=== PATIENT | female | born 1945 | race Caucasian/White ===

== ENCOUNTER 2016-10-08 09:18 | Day surgery (SDC) | payer OTHER ==
[2016-10-07 15:08] VITALS: BMI 43.7
[2016-10-08] MEDS ORDERED: LIDOCAINE HCL/PF 2% SDV 5ML VIAL ONE (10:14)
[2016-10-08] MEDS ORDERED: PROPOFOL 60 ML ONE (10:14)
[2016-10-08 10:49] VITALS: TEMP 97.9
[2016-10-08 11:16] VITALS: PULSE 63
[2016-10-08 11:37] VITALS: BP 143/65
--- NOTE | 2016-10-09 14:35 | PATH ---
Surgical Pathology Report Patient Name: SHARON RIVERA [facility]. Rec. #: [id number] /Age/Gender: 1945 (Age: 71) / F Account: [id number] Location: U-ENDOSCOPY Taken: 10/08/2016 Received: 10/08/2016 Reported: 10/09/2016 Physicians: Giovanna Casanova M.D. Specimen(s) Received POLYP CECUM Clinical History History of polyps, screening Cecal polyp, diverticulosis Final Diagnosis COLON, CECUM, POLYP, POLYPECTOMY: CONSISTENT WITH INFLAMMATORY/POSTINFLAMMATORY-TYPE POLYP. Electronically Signed Michael Arshad M.D. Gross Description Received in formalin, labeled "polyp cecum" are 2 andrews, irregular portions of soft tissue measuring 0.8 and 0.9 cm in greatest dimension. The specimens are submitted in toto in one cassette. /10/08/201610/08/2016
== END 2016-10-08 11:55 | disposition home or self-care (01) ==
LOC: JASU-ENDO 09:18
PROVIDERS: ATTEND Internal Medicine Gastroenterology
PROC: 0DBH8ZX Excision of Cecum, Via Natural or Artificial Opening Endoscopic, Diagnostic (ICD-10-PCS; principal; 2016-10-08 10:00)
DX: Z12.11 Encounter for screening for malignant neoplasm of colon (principal); D12.0 Benign neoplasm of cecum; K57.30 Diverticulosis of large intestine without perforation or abscess without bleeding; K64.8 Other hemorrhoids; I10 Essential (primary) hypertension; E78.5 Hyperlipidemia, unspecified; E89.0 Postprocedural hypothyroidism
CPT/HCPCS: 88305-TC

== ENCOUNTER 2017-08-05 10:04 | Day surgery (SDC) | payer OTHER ==
[2017-08-04 10:16] VITALS: BMI 43.0
[~2017-08-05 10:04] MED LIST: ACETAMINOPHEN 325 MG TABLET (FP) PO PRN; CIPROFLOXACIN HCL 0.3% OPHTH 2.5ML BOTTLE OP SCH; CYCLOPENTOLATE HCL 1% OPHTH SOLN 2 ML BOTTLE OP SCH; PHENYLEPHRINE 2.5% OPHTH SOLN 15 ML BOTTLE OP SCH; TROPICAMIDE 1% OPHTH SOLN 15 ML BOTTLE OP SCH
[2017-08-05] MEDS ORDERED: FLURBIPROFEN 0.03% OPHTH SOLN 2.5 ML BOTTLE ONE (10:29)
[2017-08-05] MEDS: CYCLOPENTOLATE HCL 1% OPHTH SOLN 2 ML BOTTLE ONE ×3 (10:50→11:22)
[2017-08-05] MEDS: CIPROFLOXACIN 0.3% EYE DROPS 5 ML BOTTLE ONE ×3 (10:50→11:22)
[2017-08-05] MEDS: TROPICAMIDE 1% OPHTH SOLN 15 ML BOTTLE ONE ×3 (10:50→11:23)
[2017-08-05] MEDS: PHENYLEPHRINE 2.5% OPHTH SOLN 15 ML BOTTLE ONE ×3 (10:50→11:23)
[2017-08-05] MEDS: FLURBIPROFEN 0.03% OPHTH SOLN 2.5 ML BOTTLE OP SCH ×2 (10:50→11:23)
[2017-08-05 10:55] VITALS: TEMP 97.3
[2017-08-05] MEDS ORDERED: MIDAZOLAM HCL 2 MG/2 ML SINGLE DOSE VIAL ONE (12:07)
[2017-08-05] MEDS ORDERED: TETRACAINE 0.5% OPHTH SOLN 2 ML BOTTLE OD ONE (12:23)
[2017-08-05] MEDS ORDERED: POVIDONE-IODINE 5% OPHTHALMIC PREP 30 ML SOLUTION OD ONE (12:25)
[2017-08-05] MEDS ORDERED: HYALURONATE SODIUM 14 MG/ML DISP.SYRIN IO ONE (12:35)
[2017-08-05] MEDS ORDERED: TRYPAN BLUE 0.5 ML DISP.SYRIN IO ONE (12:35)
[2017-08-05] MEDS ORDERED: CHONDROITIN SU A/HYALUR SOD 1 KIT IO ONE (12:35)
[2017-08-05] MEDS ORDERED: LIDOCAINE HCL 1% PRESERVATIVE FREE - 30ML VIAL IO ONE (12:35)
[2017-08-05] MEDS ORDERED: BSS (NA/CA/MG/K) BALANCED SALT SOLUTION OPHTH SOLN 15 ML BOTTLE OD ONE (12:35)
[2017-08-05] MEDS ORDERED: EPINEPHrine/PF 1 MG/1 ML (1:1,000) AMPULE IO ONE (12:42)
[2017-08-05 14:24] VITALS: BP 137/66; PULSE 66
--- NOTE | 2017-08-05 18:41 | OP ---
DATE OF OPERATION: PREOPERATIVE DIAGNOSIS: Mature white cataract, right eye. ASSOCIATED DIAGNOSIS: Pseudoexfoliation. POSTOPERATIVE DIAGNOSIS: Mature white cataract, right eye. PROCEDURE: Phacoemulsification of right cataract with capsular stain with Trypan blue and posterior chamber intraocular lens implantation. The lens used [id number] , 20.0 Diopter power, Serial No. [id number]. ANESTHESIA: Topical MAC. COMPLICATIONS: None. PROCEDURE: The patient was brought to the operating room and correctly identified along with the operative site as well as the correct intraocular lens bello. She was then prepped and draped in the usual sterile fashion including 5% Betadine solution in the conjunctival sac and an eyelid drape. An eyelid speculum was then placed into the right eye. The eye was inspected, and a white cataract was noted with a significant amount of pseudoexfoliation on the anterior lens capsule and pupillary margin. The pupil measured 6 mm. A paracentesis port was created and intracameral Lidocaine was given. An air bubble was then placed in the anterior chamber, and the anterior capsule was then stained with Trypan blue. The trypan blue was then removed with the rest of the preservative free lidocaine 1%. Viscoelastic was injected to inflate the anterior chamber. A temporal clear corneal wound was created. A continuous circular capsulorrhexis was performed, and the nucleus was then hydro-dissected with BSS and removed with phacoemulsification via the [id number] approach. The cataract was noted to be brown, and a moderate amount of phaco energy was employed to remove the quadrants. The remaining cortical material was irrigated and aspirated from the eye. A small wound burn was noted in the center of the roof of the clear corneal wound. Viscoelastic was injected to inflate the capsular bag. The intraocular lens was injected into the capsular bag. Viscoelastic was then irrigated and aspirated from the eye. The anterior chamber was then reformed with BSS. However, there was a small amount of leakage noted in the temporal clear corneal wound. A single 10-0 nylon suture was placed, and the anterior chamber reformed again with BSS, but once again there was still a small amount of leakage. A second 10-0 nylon suture was placed and no further leakage was noted. The intraocular lens was noted to be well centered and covered by the anterior capsular border. All wounds were once again checked and found to be watertight. Topical Vancomycin was given and the eye patched and shielded. The patient was discharged from the operating room in stable condition. PAUL SOTELO M.D. [id number] MTDD
== END 2017-08-05 14:28 | disposition home or self-care (01) ==
LOC: JASU-SURG 10:04
PROVIDERS: ATTEND Ophthalmology
PROC: 08RJ3JZ Replacement of Right Lens with Synthetic Substitute, Percutaneous Approach (ICD-10-PCS; principal; 2017-08-05 12:00)
DX: H25.091 Other age-related incipient cataract, right eye (principal); H26.8 Other specified cataract

== ENCOUNTER 2018-04-30 05:24 | Day surgery (SDC) | payer OTHER ==
[2018-04-29 14:44] VITALS: BMI 43.9
--- NOTE | 2018-04-30 09:31 | HP ---
History & Physical Update - History History: No Change - Physical Physical: No Change - Assessment Assessment: No Change - Plan Plan: No Change (Patient with papillary carcinoma of the lft breast for left partial mastectomy, sentinel node biopsy.)
[2018-04-30] MEDS ORDERED: SUCCINYLCHOLINE CHLORIDE 200 MG/10 ML VIAL ONE (13:52)
[2018-04-30] MEDS ORDERED: PROPOFOL 20 ML ONE (13:52)
[2018-04-30] MEDS ORDERED: MIDAZOLAM HCL 2 MG/2 ML SINGLE DOSE VIAL ONE (13:52)
[2018-04-30] MEDS ORDERED: ceFAZolin SODIUM 1 GM VIAL ONE (14:41)
[2018-04-30] MEDS ORDERED: ceFAZolin SODIUM 1 GM VIAL IVPB ONE (14:42)
[2018-04-30] MEDS ORDERED: ePHEDrine SULFATE 50 MG/1 ML AMPULE ONE (14:53)
[2018-04-30] MEDS ORDERED: VASOPRESSIN 20 UNITS/ML VIAL IV ONE (15:29)
[2018-04-30] MEDS ORDERED: oxyCODONE HCL 5 MG TABLET PO PRN (15:52)
[2018-04-30] MEDS ORDERED: LACTATED RINGERS SOLUTION 1,000 ML IV SCH (16:00)
[2018-04-30] MEDS ORDERED: BUPIVACAINE HCL/PF 0.5% (5MG/ML) 10 ML VIAL ONE (16:21)
[2018-04-30] MEDS ORDERED: BUPIVACAINE HCL/PF 0.5% (5MG/ML) 10 ML VIAL IJ ONE (16:30)
--- NOTE | 2018-04-30 16:45 | OP ---
Operative Note - Note: Operative Date: 04/30/18 Pre-Operative Diagnosis: Papillary carcinoma of left breast. Operation: Needle localisation of carcinoma of left breast, left partial mastectomy with margins,. [place] node identification, with neoprobe, sentinel lymph node biopsy. Post-Operative Diagnosis: Same as Pre-op Surgeon: Lary Hurtado Anesthesiologist/CORK INSULATOR: Patti Millard Anesthesia: General Specimens Removed: Partial mastectomy left breast , after localisation by radiology. Left axillary sentinel lymph node. Estimated Blood Loss (mls): 20 Operative Report Dictated: Yes
[2018-04-30] MEDS ORDERED: ONDANSETRON 4 MG/2 ML VIAL ONE (17:23)
[2018-04-30 19:05] VITALS: TEMP 98
[2018-04-30] MEDS ORDERED: PROMETHAZINE HCL 25 MG/1 ML VIAL IVPUSH ONE (19:20)
[2018-04-30] MEDS ORDERED: PROMETHAZINE HCL 25 MG/1 ML VIAL IVPB ONE (19:20)
[2018-04-30] MEDS ORDERED: PROMETHAZINE HCL 25 MG/1 ML VIAL ONE (19:20)
[2018-04-30 19:53] VITALS: BP 118/61; PULSE 78
--- NOTE | 2018-05-01 13:01 | OP ---
DATE OF OPERATION: 04/30/2018 PREOPERATIVE DIAGNOSIS: Papillary carcinoma of the left breast. POSTOPERATIVE DIAGNOSIS: Papillary carcinoma of the left breast. OPERATIVE PROCEDURE: Needle localization of papillary carcinoma of the left breast, left partial mastectomy with margins, sentinel node identification in the left axilla, and sentinel lymph node biopsy. SURGEON: Seth Hurtado MD ANESTHESIA: General anesthesia. OPERATIVE DESCRIPTION: This 73-year-old woman with an abnormal left mammogram biopsy of which showed papillary carcinoma was brought in for partial mastectomy of the left breast with sentinel node biopsy after needle localization of the lesion in the left breast and injection of radioactive substance for nuclear mapping of a sentinel lymph node. Consent was obtained. Risks, benefits and complications had been extensively discussed with the patient. The patient had first needle localization in the radiology department as well as radiocontrast injected for sentinel node mapping. Patient was then brought to the operating room. General anesthesia was administered. The left breast and left axilla were painted and draped. Timeout was called. Patient was given antibiotics. The needle in the lesion in the left breast was just above the areola at about the 1 o'clock position. Therefore circumareolar incision was made in the outer aspect on the edge of the left areola. The incision was deepened through skin. Skin flap was then raised in the upper outer quadrant of the left breast. The needle was then grasped and a wide amount of breast was excised around the guidewire and the tip of the wire. The breast tissue that was excised was greater than 5 cm in diameter. The wide margin was obtained around the wire. Specimen was then marked superiorly, medially and laterally with silk sutures as well as Vicryl sutures. The specimen was sent for specimen radiography where the previously placed clip was identified. The specimen was then sent to Pathology. The wound was irrigated. Hemostasis was achieved. Breast tissue was carefully approximated with 2-0 chromic catgut sutures and skin approximated with buried interrupted 4-0 Monocryl sutures and running subcuticular sutures. Estimated blood loss for this procedure was about 15 mL. The patient was then redraped and the axillary dissection was performed. The Neoprobe was used to identify the radioactivity. On the upper medial aspect of the axilla there was active radioactivity going up to 300 to 400 with the surrounding area being in the 30 to 40. A transverse incision was made under the medial wall of the left axilla. The incision was deepened through skin, subcutaneous tissue and the deep fascia. The probe was then inserted to identify the axillary lymph node. Once this was identified the activity was around 700 with a background of about 20. This lymph node was then removed dividing the lymphatics with clips and adjacent lymph nodes were also removed. This was firm and after removing it from the body it also showed activity of over 700, thus suggesting this was the sentinel lymph node. There were no other lymph nodes with increased activity. The specimen was sent to Pathology. It was not in formalin. The wound was irrigated. Hemostasis was achieved. The defect was approximated with interrupted 3-0 Vicryl sutures. Subcutaneous fat and dermis were approximated with interrupted 3-0 Vicryl sutures. Skin was approximated with continuous 4-0 Monocryl sutures in running subcuticular fashion. Pressure dressing was applied. Sponge count and instrument count were correct. Patient was extubated and returned to the recovery room in satisfactory and stable condition. Shania BOATENG/[id number]
--- NOTE | 2018-05-05 11:13 | PATH ---
Surgical Pathology Report Patient Name: SHARON RIVERA [facility]. Rec. #: [id number] /Age/Gender: 1945 (Age: 73) / F Account: [id number] Location: [facility] SURGICAL Taken: 04/30/2018 Received: 04/30/2018 Reported: 05/06/2018 Physicians: Seth Hurtado M.D. Specimen(s) Received A: LEFT BREAST LUMPECTOMY B: LEFT AXILLARY SENTINEL LYMPH NODE BX Clinical History None given Final Diagnosis AMENDED REPORT A. BREAST, LEFT, LUMPECTOMY: INTRACYSTIC PAPILLARY CARCINOMA WITH EXTENSIVE SCLEROSIS, INTERMEDIATE NUCLEAR GRADE; NO DEFINITIVE INVASION IDENTIFIED. INTRACYSTIC PAPILLARY CARCINOMA SPANS 1.5 CM IN GREATEST MICROSCOPIC DIMENSION. DUCTAL CARCINOMA IN SITU (DCIS), SOLID, PAPILLARY, AND FOCAL CRIBRIFORM TYPES, INTERMEDIATE NUCLEAR GRADE. NO LYMPHOVASCULAR INVASION IDENTIFIED. SURGICAL MARGINS ARE UNINVOLVED BY INTRACYSTIC PAPILLARY CARCINOMA AND DCIS; INTRACYSTIC PAPILLARY CARCINOMA IS 1 MM FROM CLOSEST LATERAL AND INFERIOR MARGINS; DCIS IS 1 MM FROM CLOSEST INFERIOR MARGIN. PRIOR BIOPSY SITE CHANGES PRESENT. PATHOLOGIC STAGE (pTNM): pTis (DCIS) pN0(sn). SEE CASE SUMMARY BELOW. SEE COMMENT. B. AXILLARY SENTINEL LYMPH NODE, LEFT, EXCISION: ONE BENIGN LYMPH NODE (0/1). Comment: Immunohistochemical stains performed and interpreted at [facility] for myoepithelial markers: P63 and smooth muscle myosin heavy chain (SMM-HC) demonstrate the presence of attenuated myoepithelial cells in the intracystic papillary carcinoma. This finding, along with morphologic feature of circumscribed peripheral contour of the lesion supports the diagnosis, and aids in ruling out the presence of invasive carcinoma. Papillary intracystic carcinoma without definitive evidence of invasion is deemed as having a biologic potential of an in situ carcinoma, and hence staged as such. Case seen interdepartmentally. Findings discussed with Dr. Hurtado 05/06/18. Comments DCIS of the Breast: Surgical Pathology Cancer Case Summary (Based on AJCC TNM 8 th edition) Procedure _X_ Excision (less than total mastectomy) Specimen Laterality _X_ Left Size (Extent) of DCIS (and intracystic papillary carcinoma) Estimated size (extent) of DCIS (greatest dimension using gross and microscopic evaluation): at least (millimeters) _15__ mm Number of blocks with DCIS (and intracystic papillary carcinoma): _7__ Number of blocks examined: _12__ Histologic Type _X_ Intracystic papillary carcinoma _X_ Ductal carcinoma in situ Architectural Patterns _X_ Micropapillary _X_ Papillary _X_ Solid Nuclear Grade _X_ Grade II (intermediate) Necrosis _X_ Not identified Margins _X_ Uninvolved by Intracystic papillary carcinoma: Distance from closest margin (millimeters): _1__ mm Specify closest margin: Inferior and lateral margins _X_ Uninvolved by DCIS Distance from closest margin (millimeters): _1__ mm Specify closest margin: Inferior margin. Regional Lymph Nodes Number of Lymph Nodes with Macrometastases (>2 mm): _0___ Number of Lymph Nodes with Micrometastases (>0.2 mm to 2 mm and/or >200 cells): __0__ Number of Lymph Nodes with Isolated Tumor Cells (=0.2 mm and =200 cells): _0___ Number of Lymph Nodes Examined: _1__ Number of [place] Nodes Examined: _1__ Pathologic Stage Classification (pTNM, AJCC 8th Edition) Primary Tumor (pT) _X_ pTis (DCIS): Ductal carcinoma in situ (and intracystic papillary carcinoma) Regional Lymph Nodes (pN) Modifier _X_ (sn): [place] node(s) evaluated. _X_ pN0: No regional lymph node metastasis identified or ITCs only Biomarker Studies Results of ER and UT studies performed on this specimen (block#A1) at [facility] are as follows: ER (clone [id number] mouse monoclonal antibody by [employer]): >90% nuclear staining with strong intensity (Positive). UT (clone16 mouse monoclonal antibody by [employer]): ~60% nuclear staining with moderate to strong intensity (Positive). Positive and negative controls (internal if applicable) show appropriate results. Formalin fixation and cold ischemic times are within current ASCO/CAP recommendations for ER, UT and Her2 testing. Electronically Signed Pinky Alamo M.D. Amendments Amended: 05/06/2018 Previous Signout Date: 05/05/2018 Comment: Change the diagnosis from Invasive Papillary carcinoma, Solid variant to Intracystic Papillary carcinoma, Intermediate nuclear grade. Update margin status and case summary. Findings discussed with Dr. Hurtado on 05/06/2018. Addendum Reported: 05/05/2018 Addendum Diagnosis Results of Her2 (IHC) & Ki-67 studies performed on block "A1 " at [place], [place] ([id number]) are as follows: Her2 IHC (EP3 from [employer], formerly known as [id number], using [employer] Polymer Refine detection kit): 0 (Negative). Ki-67: ~ 25% (Intermediate proliferative index). Positive and negative controls (internal if applicable) show appropriate results. Pinky Alamo M.D. Gross Description A. Received fresh on an AccuGrid, labeled "left breast lumpectomy," is a 6.4 x 5.3 x 2.8 cm. andrews-yellow, irregular, portion of fibroadipose tissue with a needle localization wire present. Specimen designated as follows: single strand suture marking the medial aspect, double strand suture marking the superior aspect and purple suture marking the anterior aspect, per surgeon. There is no skin or nipple present. The specimen is inked as follows: Superior blue; inferior green; anterior and lateral red; medial yellow; deep black. The specimen is serially sectioned from anterior to deep. Sectioning reveals 2 x 1.5 x 1.5 cm andrews, firm, ill-defined mass focally abutting the anterior, medial and inferior margins. There is an additional 1.5 x 1.0 x 0.8 cm focus of firm fibrous tissue abutting the lateral margin. Circular Knife Cutter Machine sections are submitted in 12 cassettes as follows: 1-full face section of mass; 2-mass with medial margin; 3-5-mass with medial and inferior margins; 6-additional inferior margin; 7-anterior margin; 4-23-oopbornb focus of firm fibrous tissue with lateral margin; 11-superior margin; 12-deep margin. Total formalin fixation time: Approximately 26 hours DL/04/30/2018 B. Received in formalin labeled "left axillary sentinel lymph node" is a pink-andrews lymph node measuring 2 x 2 x 1 cm. The specimen is serially sectioned and entirely submitted in 2 cassettes. [facility] [place]/05/03/2018 [facility]04/30/2018
== END 2018-04-30 20:25 | disposition home or self-care (01) ==
LOC: JASU-SURG 05:24
PROVIDERS: ATTEND Specialist
PROC: 0HBU0ZZ Excision of Left Breast, Open Approach (ICD-10-PCS; principal; 2018-04-30 14:30)
PROC: 07B60ZX Excision of Left Axillary Lymphatic, Open Approach, Diagnostic (ICD-10-PCS; 2018-04-30 14:30)
DX: C50.912 Malignant neoplasm of unspecified site of left female breast (principal)
CPT/HCPCS: 19281; 78195-TC; 88307-TC; 88341-TC; 88342-TC; 94760; A9541

== ENCOUNTER 2018-05-01 14:46 | Inpatient (IN) | payer OTHER ==
[2018-05-01 15:34] LABS: BASO % 0.3 % (0-2.0); EOS % 0.2 % (0-4.5); HEMATOCRIT 44.2 % (32.4-45.2); HEMOGLOBIN 14.9 GM/dL (10.7-15.3); LYMPH % 3.2 % (8-40); MCH 32.1 pg (25.7-33.7); MCHC 33.6 g/dl (32.0-36.0); MEAN CELL VOLUME 95.6 fl (80-96); MEAN PLT VOLUME 9.9 fl (7.5-11.1); NEUT % 89.3 % (42.8-82.8); PLATELET COUNT 241 K/MM3 (134-434); RBC 4.63 M/mm3 (3.60-5.2); RDW 12.3 % (11.6-15.6); WHITE BLOOD COUNT 25.6 K/mm3 (4.0-10.0)
--- NOTE | 2018-05-01 15:54 | PDOC ---
History of Present Illness - General Chief Complaint: Syncope/Near Syncope Stated Complaint: SYNCOPE Time Seen by Provider: 05/01/18 15:15 - History of Present Illness Initial Comments: 05/01/18 15:53 73 yo F w/ PMH HTN, hypothyroid, thyroidectomy 2011, murmur?, recent papillary carcinoma of the L breast s/p left partial mastectomy w/ sentinel node biopsy on 04/30/18, p/w syncopal episode. This morning pt was on couch talking on phone eating breakfast and passed out. Pt does endorse seeing some spots beforehand but did not notice any prodromal sxs and denies any cp, sob, lightheadedness, n/v/d, fevers, chills, postictal confusion, head trauma, incontinence, seizure like activity, palpitations, urinary sxs, blood in stools. Pt notes she did take her lasix that morning before passing out,which she takes every other day but did not take her BP meds. She did feel warm after regaining consciousness SH: denies smoke etoh drugs Past History - Past Medical History Allergies/Adverse Reactions: Allergies Allergy/AdvReac Type Severity Reaction Status Date / Time phenobarbital Allergy Intermediate Verified 08/05/17 11:15 ibuprofen AdvReac Severe Verified 08/05/17 11:15 Home Medications: Ambulatory Orders Amlodipine Besylate [Norvasc -] 5 mg PO DAILY 07/29/12 Chlorthalidone [Hygroton -] 25 mg PO ASDIR 07/29/12 Cholecalciferol (Vitamin D3) [Vitamin D3] 50,000 unit PO WEEKLY 10/07/16 Levothyroxine [Synthroid -] 100 mcg PO DAILY 10/07/16 Lisinopril [Prinivil] 20 mg PO DAILY 10/07/16 Metoprolol Succinate [Toprol Xl] 50 mg PO BID 10/07/16 hydrALAZINE HCL [Apresoline -] 25 mg PO BID 10/07/16 Ranitidine HCl [Zantac] 150 mg PO BID 04/29/18 Acetaminophen [Tylenol] 325 mg PO TID 10 Days #30 capsule 04/30/18 Anemia: No Asthma: No Cancer: No Cardiac Disorders: No CVA: No COPD: No CHF: No Dementia: No Diabetes: No GI Disorders: Yes (COLON POLYPS) Disorders: No HTN: Yes Hypercholesterolemia: Yes Liver Disease: No Seizures: No Thyroid Disease: Yes - Surgical History Abdominal Surgery: No Appendectomy: No Cardiac Surgery: No Cholecystectomy: No Lung Surgery: No Neurologic Surgery: No Orthopedic Surgery: No - Suicide/Smoking/Psychosocial Hx Smoking History: Never smoked Have you smoked in the past 12 months: No If you are a former smoker, when did you quit?: 30YRS AGO. Hx Alcohol Use: Yes (SOCIALLY) Drug/Substance Use Hx: No Substance Use Type: None Hx Substance Use Treatment: No Review of Systems - Review of Systems Constitutional: Yes: See HPI HEENTM: Yes: See HPI Respiratory: Yes: See HPI Cardiac (ROS): Yes: See HPI ABD/GI: Yes: See HPI : Yes: See HPI Musculoskeletal: Yes: See HPI Integumentary: Yes: See HPI Neurological: Yes: See HPI Endocrine: Yes: See HPI Hematologic/Lymphatic: Yes: See HPI *Physical Exam - Vital Signs Last Vital Signs Temp Pulse Resp BP Pulse Ox 98.7 F 70 18 143/51 L 99 05/01/18 14:52 05/01/18 14:52 05/01/18 14:52 05/01/18 14:52 05/01/18 14:52 - Physical Exam Comments: 05/01/18 15:52 General: Well-nourished, NAD, obese HEENT: NCAT, MMM Neck: Supple, no lymphadenopathy Respiratory: CTAB cardio: diminished, RRR S1 S2 no m/r/g Abdomen: +BS , soft, NTND Extremities: radial 2+ b/l. Warm, dry, no cyanosis, clubbing or calf tenderness. 1+ pitting edema Skin: intact. no rashes Neuro: Alert and oriented x3, strength sensation grossly intact. FTN nl. CN I- XII grossly intact Psych: Normal mood and affect ED Treatment Course - LABORATORY CBC & Chemistry Diagram: 05/01/18 15:00 05/01/18 15:30 - RADIOLOGY Radiology Studies Ordered: Category Date Time Status CHEST X-RAY PORTABLE* [RAD] Stat Radiology 05/01/18 15:30 Taken Medical Decision Making - Medical Decision Making 05/01/18 16:03 73 yo F w/ PMH HTN, hypothyroid, thyroidectomy 2011, murmur?, recent papillary carcinoma of the L breast s/p left partial mastectomy w/ sentinel node biopsy on 04/30/18, p/w syncopal episode. vitals wnl Ddx: syncope 2/2 vasovagal vs dehydration vs arrhythmia vs ACS vs pulmonary etiology potential concern for pulmonary embolism given recent surgery and active breast cancer -CBC, CMP, trop, EKG, PT/INR -traffic monitor specialist -CXR -CTA? 05/01/18 17:36 -NSR 76, low voltage QRS, TWI III, avF, no ericka/ericka, QTC 461 msec. No brugada, no HOCM, no WPW -Patient not eligible for IV contrast study given MARIVEL vs CKD. We'll need to consider V/Q study. -white count 25. Source is unclear at this time. -We'll obtain urine culture and blood cultures and attempt to find source. -Bedside echo shows overall normal global contractility and no evidence of pericardial effusion. -will admit to tele for syncope 05/01/18 16:53 signed out to MIXING HOUSE OPERATOR for Dr. Tripp updated Dr. Hurtado about pt status will admit to tele for syncope and possible PE w/u may consider V/Q scan *DC/Admit/Observation/Transfer Diagnosis at time of Disposition: Syncope Qualifiers: Syncope type: unspecified Qualified Code(s): R55 - Syncope and collapse - Referrals Referrals: Shannan Haro MD [Primary Care Provider] - - Patient Instructions - Post Discharge Activity
[2018-05-01 16:15] LABS: ALK PHOS 78 U/L (45-117); ANION GAP 9 MMOL/L (8-16); BILIRUBIN,TOTAL 0.5 mg/dL (0.2-1); BLOOD UREA NITROGEN 26 mg/dL (7-18); CALCIUM 8.3 mg/dL (8.5-10.1); CHLORIDE 98 mmol/L (98-107); CO2 28 mmol/L (21-32); CREATININE 1.6 mg/dL (0.55-1.3); GLUCOSE,RANDOM 145 mg/dL (74-106); POTASSIUM 3.9 mmol/L (3.5-5.1); SGOT/AST 23 U/L (15-37); SGPT/ALT 19 U/L (13-61); SODIUM 135 mmol/L (136-145); TOT PROT 5.9 g/dl (6.4-8.2)
--- NOTE | 2018-05-01 16:38 | PDOC ---
Attending Attestation - Resident Resident Name: Luis Last - ED Attending Attestation I have performed the following: I have examined & evaluated the patient, The case was reviewed & discussed with the resident, I agree w/resident's findings & plan, Exceptions are as noted - HPI HPI: 05/01/18 16:35 73-year-old female patient with history of hypertension, hypothyroidism, thyroidectomy, left sided breast cancer status post left partial mastectomy yesterday presents with 2 episodes of syncope. The patient was feeling well yesterday and with no symptoms. Today, the patient was sitting on the couch and doing nothing particular when she suddenly had drop syncope. Denies head trauma or injury. The patient never had chest pain or shortness of breath. Denies recent illnesses, fevers, chills, cough, vomiting, diarrhea. The patient had a syncopal episode several hours later while eating and some drop syncope. Again denies any trauma. - Physicial Exam PE: 05/01/18 16:35 GENERAL: Awake, alert, and fully oriented, in no acute distress HEAD: No signs of trauma EYES: EOMI, sclera anicteric, conjunctiva clear ENT: Auricles normal inspection, hearing grossly normal, nares patent, Moist mucosa NECK: Normal ROM, supple, LUNGS: Breath sounds equal, clear to auscultation bilaterally. No wheezes, and no crackles HEART: Regular rate and rhythm, normal S1 and S2, no murmurs, rubs or gallops BREAST: s/p partial left mastectomy. No erythema, drainage, bleeding. ABDOMEN: Soft, nontender, No guarding, no rebound. No masses EXTREMITIES: Normal range of motion, 2+ pitting edema b/l. No clubbing or cyanosis. No cords, erythema, or tenderness NEUROLOGICAL: Cranial nerves II through XII grossly intact. Normal speech, SKIN: Warm, Dry, normal turgor, no rashes or lesions noted. - Medical Decision Making 05/01/18 16:37 Vital Signs Temp Pulse Resp BP Pulse Ox 98.7 F 70 18 143/51 L 99 05/01/18 14:52 05/01/18 14:52 05/01/18 14:52 05/01/18 14:52 05/01/18 14:52 Patient has had 2 episodes of drop syncope. This is concerning for potential cardiac or pulmonary etiology. We'll need to obtain a troponin and placed the patient on conveyor monitor. Also, there is potential concern for pulmonary embolism. The patient recently had surgery and is active breast cancer. Patient hours not eligible for IV contrast study given chronic kidney disease. We'll need to consider V/Q study. The patient will alsoneed to be admitted for further evaluation and management. Patient is also noted to have a white count 25. Source is unclear at this time. We'll obtain urine culture and blood cultures and attempt to find source. At this time, patient not endorsing any fevers. 05/01/18 16:53 Bedside echo shows overall normal global contractility and no evidence of pericardial effusion. Heart Score/ECG Review #1 ECG reviewed & interpreted by me at: 15:25 05/01/18 16:39 NSR 76, low voltage QRS, TWI III, avF, no ericka/ericka, QTC 461 msec 05/01/18 16:39 No brugada, no HOCM, no WPW
[2018-05-01 16:50] LABS: INR 1.06 (0.83-1.09); PROTHROMBIN TIME (PATIENT) 12.5 SEC (9.7-13.0)
[2018-05-01 17:42] LABS: URINE APPEARANCE CLOUDY; URINE BILIRUBIN NEGATIVE (<2.0 mg/dL); URINE COLOR AMBER; URINE GLUCOSE (UA) 1+ (NEGATIVE); URINE KETONE NEGATIVE (NEGATIVE); URINE LEUK ESTERASE TRACE (NEGATIVE); URINE NITRITE NEGATIVE (NEGATIVE); URINE PROTEIN 2+ (NEGATIVE)
[2018-05-01 17:58] LABS: EPI CELLS MANY /HPF (FEW); URINE BACTERIA RARE /hpf (NONE SEEN); URINE HYALINE CAST 16 /lpf; URINE MUCUS RARE
[2018-05-01] MEDS ORDERED: PANTOPRAZOLE SODIUM 40 MG VIAL ONE (18:07)
[2018-05-01] MEDS ORDERED: INSULIN REGULAR HUMAN 100 UNITS/ML *VIAL ONE (18:08)
[2018-05-01 18:15] LABS: PLATELET ESTIMATE NORMAL
[2018-05-01] MEDS ORDERED: ACETAMINOPHEN 325 MG TABLET (FP) PO PRN (18:29)
[2018-05-01 18:37] LABS: MAGNESIUM 1.9 mg/dL (1.8-2.4); PHOSPHOROUS 3.9 mg/dL (2.5-4.9)
[2018-05-01] MEDS ORDERED: SODIUM CHLORIDE 1,000 ML IV STA (19:33)
[2018-05-01] MEDS ORDERED: cefTRIAXone SODIUM 1 GM VIAL ONE (19:41)
[2018-05-01] MEDS: LISINOPRIL 10 MG TABLET (FP) PO SCH (20:20)
[2018-05-01] MEDS: RANITIDINE HCL 150 MG TABLET (FP) PO SCH (20:20)
[2018-05-01] MEDS ORDERED: RANITIDINE HCL 150 MG TABLET (FP) ONE (20:28)
[2018-05-01] MEDS: HEPARIN NA (PORCINE) 5,000 UNITS/ML 1ML VIAL SQ SCH (22:30)
[2018-05-01] MEDS: METOPROLOL TARTRATE 50 MG TABLET (FP) PO SCH (22:45)
[2018-05-02] MEDS ORDERED: HEPARIN NA (PORCINE) 5,000 UNITS/ML 1ML VIAL ONE ×2 (00:01→09:35)
[2018-05-02] MEDS ORDERED: LEVOTHYROXINE NA 25 MCG TABLET (FP) ONE (07:00)
[2018-05-02] MEDS: LEVOTHYROXINE NA 100 MCG TABLET (FP) PO SCH (07:11)
[2018-05-02 07:57] LABS: BASO % 0.2 % (0-2.0); EOS % 0.2 % (0-4.5); HEMATOCRIT 35.8 % (32.4-45.2); HEMOGLOBIN 12.2 GM/dL (10.7-15.3); LYMPH % 10.6 % (8-40); MCH 32.2 pg (25.7-33.7); MCHC 34.1 g/dl (32.0-36.0); MEAN CELL VOLUME 94.3 fl (80-96); MEAN PLT VOLUME 9.8 fl (7.5-11.1); MONO % 11.2 % (3.8-10.2); NEUT % 77.8 % (42.8-82.8); PLATELET COUNT 162 K/MM3 (134-434); RDW 12.6 % (11.6-15.6); WHITE BLOOD COUNT 10.1 K/mm3 (4.0-10.0)
[2018-05-02 09:01] LABS: ALBUMIN 2.9 g/dl (3.4-5.0); ALK PHOS 67 U/L (45-117); ANION GAP 6 MMOL/L (8-16); BILIRUBIN,TOTAL 0.4 mg/dL (0.2-1); BLOOD UREA NITROGEN 29 mg/dL (7-18); CHLORIDE 99 mmol/L (98-107); CO2 29 mmol/L (21-32); CREATININE 1.5 mg/dL (0.55-1.3); GLUCOSE,RANDOM 97 mg/dL (74-106); SGOT/AST 22 U/L (15-37); SGPT/ALT 19 U/L (13-61); SODIUM 134 mmol/L (136-145); TOT PROT 5.4 g/dl (6.4-8.2)
[2018-05-02] MEDS: CHLORTHALIDONE 25 MG TABLET PO SCH (09:30)
[2018-05-02] MEDS: amLODIPine BESYLATE 5 MG TABLET (FP) PO SCH (09:31)
[2018-05-02] MEDS: LISINOPRIL 10 MG TABLET (FP) PO SCH (09:32)
[2018-05-02] MEDS: METOPROLOL TARTRATE 50 MG TABLET (FP) PO SCH ×2 (09:33→23:00)
[2018-05-02] MEDS: RANITIDINE HCL 150 MG TABLET (FP) PO SCH (09:33)
[2018-05-02] MEDS: HEPARIN NA (PORCINE) 5,000 UNITS/ML 1ML VIAL SQ SCH ×2 (09:34→23:00)
--- NOTE | 2018-05-02 10:51 | EKG ---
Test Reason : Blood Pressure : / mmHG Vent. Rate : 076 BPM Atrial Rate : 076 BPM P-R Int : 154 ms QRS Dur : 078 ms QT Int : 410 ms P-R-T Axes : 050 022 018 degrees QTc Int : 461 ms NORMAL SINUS RHYTHM LOW VOLTAGE QRS CANNOT RULE OUT INFERIOR INFARCT , AGE UNDETERMINED ABNORMAL ECG NO PREVIOUS ECGS AVAILABLE Confirmed by RODNEY BARBOZA MD ([id number]) on 05/02/2018 10:51:15 AM Referred By: Confirmed By:RODNEY BARBOZA MD
--- NOTE | 2018-05-02 20:42 | HP ---
Admitting History and Physical - Admission History of Present Illness: Pt is a 73 y/o female with PMH significant for hypertension, and hypothyroidism. Pt also has a h/o left sided breast cancer status post left partial mastectomy done on 04/30/18. Pt presented to the ER with 2 episodes of syncope. The first episode accurred after she had gotten home from surgery. The patient was feeling well and then again on the day of admission, the patient was sitting on the couch and doing nothing particular when she suddenly had drop syncope. Denies head trauma or injury. The patient never had chest pain or shortness of breath. Denies recent illnesses, fevers, chills, cough, vomiting, diarrhea. The patient had a syncopal episode several hours later while eating and some drop syncope. In the ER pt was found to have a WBC of 25,000 and lactic acid of 2.6. - Past Medical History Cardiovascular: Yes: HTN Heme/Onc: Yes: Other (Breast cancer) Endocrine: Yes: Hypothyroidism - Past Surgical History Additional Past Surgical History: Thyroidectomy Lt mastectomy - Smoking History Smoking history: Never smoked Have you smoked in the past 12 months: No If you are a former smoker, when did you quit?: 30YRS AGO. - Alcohol/Substance Use Hx Alcohol Use: Yes (SOCIALLY) Home Medications - Allergies Allergies/Adverse Reactions: Allergies Allergy/AdvReac Type Severity Reaction Status Date / Time phenobarbital Allergy Intermediate Verified 08/05/17 11:15 ibuprofen AdvReac Severe Verified 08/05/17 11:15 - Home Medications Home Medications: Ambulatory Orders Amlodipine Besylate [Norvasc -] 5 mg PO DAILY 07/29/12 Chlorthalidone [Hygroton -] 25 mg PO ASDIR 07/29/12 Cholecalciferol (Vitamin D3) [Vitamin D3] 50,000 unit PO WEEKLY 10/07/16 Levothyroxine [Synthroid -] 100 mcg PO DAILY 10/07/16 Lisinopril [Prinivil] 20 mg PO DAILY 10/07/16 Metoprolol Succinate [Toprol Xl] 50 mg PO BID 10/07/16 hydrALAZINE HCL [Apresoline -] 25 mg PO BID 10/07/16 Ranitidine HCl [Zantac] 150 mg PO BID 04/29/18 Acetaminophen [Tylenol] 325 mg PO TID 10 Days #30 capsule 04/30/18 Family Disease History - Family Disease History Family History: Unremarkable Review of Systems - Review of Systems Constitutional: reports: No Symptoms HENT: reports: No Symptoms Neck: reports: No Symptoms Cardiovascular: reports: No Symptoms Respiratory: reports: No Symptoms Gastrointestinal: reports: No Symptoms Genitourinary: reports: No Symptoms Physical Examination Vital Signs: Vital Signs Temperature 98.1 F 05/02/18 14:24 Pulse Rate 66 05/02/18 14:24 Respiratory Rate 16 05/02/18 14:24 Blood Pressure 152/62 05/02/18 14:24 O2 Sat by Pulse Oximetry (%) 96 05/02/18 14:24 Constitutional: Yes: Well Nourished HENT: Yes: WNL Neck: Yes: WNL, Supple Cardiovascular: Yes: WNL, Regular Rate and Rhythm Respiratory: Yes: WNL, Regular, CTA Bilaterally Gastrointestinal: Yes: WNL, Normal Bowel Sounds, Soft Musculoskeletal: Yes: WNL Extremities: Yes: WNL Edema: Yes Edema: LLE: Trace, RLE: Trace Peripheral Pulses WNL: Yes Neurological: Yes: WNL, Alert, Oriented ...Motor Strength: WNL Labs: CBC, BMP 05/02/18 07:35 05/02/18 07:35 Problem List - Problems (1) Syncope Assessment/Plan: Due to ?sepsis Cont IVF and IV antibxs Monitor cultures ID consult Will also get cardio consult and check echo Code(s): R55 - SYNCOPE AND COLLAPSE Qualifiers: Syncope type: unspecified Qualified Code(s): R55 - Syncope and collapse (2) HTN (hypertension) Assessment/Plan: BP stable Cont norvasc/lisinopril/lopressor/hygroton Cardio consult Code(s): I10 - ESSENTIAL (PRIMARY) HYPERTENSION (3) Hypothyroidism Assessment/Plan: Cont levothyroxine Check TSH level Code(s): E03.9 - HYPOTHYROIDISM, UNSPECIFIED (4) Breast cancer Code(s): C50.919 - MALIGNANT NEOPLASM OF UNSP SITE OF UNSPECIFIED FEMALE BREAST
[2018-05-02] MEDS ORDERED: METOPROLOL TARTRATE 50 MG TABLET (FP) ONE (22:50)
[2018-05-03 06:46] LABS: BASO % 0.8 % (0-2.0); EOS % 0.9 % (0-4.5); HEMATOCRIT 34.3 % (32.4-45.2); HEMOGLOBIN 11.6 GM/dL (10.7-15.3); LYMPH % 20.2 % (8-40); MCH 31.9 pg (25.7-33.7); MCHC 33.8 g/dl (32.0-36.0); MEAN CELL VOLUME 94.4 fl (80-96); MEAN PLT VOLUME 9.7 fl (7.5-11.1); MONO % 13.8 % (3.8-10.2); NEUT % 64.3 % (42.8-82.8); PLATELET COUNT 156 K/MM3 (134-434); RBC 3.63 M/mm3 (3.60-5.2); RDW 12.7 % (11.6-15.6)
[2018-05-03] MEDS: LEVOTHYROXINE NA 100 MCG TABLET (FP) PO SCH (07:00)
[2018-05-03 07:47] LABS: ALBUMIN 2.9 g/dl (3.4-5.0); ALK PHOS 68 U/L (45-117); ANION GAP 6 MMOL/L (8-16); BLOOD UREA NITROGEN 21 mg/dL (7-18); CALCIUM 8.9 mg/dL (8.5-10.1); CHLORIDE 100 mmol/L (98-107); CO2 31 mmol/L (21-32); GLUCOSE,RANDOM 93 mg/dL (74-106); POTASSIUM 4.2 mmol/L (3.5-5.1); SGOT/AST 17 U/L (15-37); SGPT/ALT 19 U/L (13-61); SODIUM 137 mmol/L (136-145); TOT PROT 5.5 g/dl (6.4-8.2)
--- NOTE | 2018-05-03 08:48 | CON.CARD ---
Consult Consult Specialty:: Cardiology Referred by:: Dr. Kasper Reason for Consultation:: Presyncope - History of Present Illness Chief Complaint: UTI. Presyncope History of Present Illness: 73F PMH HTN, Breast Ca, s/p left breast bx Thursday who presented to ER after two episodes of presyncope. She does not recall the events but noted that her cereal fell to floor and she may have "zoned out". She denies CP, SOB, palpitations. Denies exertional CP. Denies prior cardiac history. In ER, UA and labs c/w prerenal azotemia: elevated BUN and creatinine, elevated lactate. One set of cardiac enzymes is negative. She was cultured and started on IV abx for UTI. - History Source History Provided By: Patient, Medical Record - Past Medical History Cardio/Vascular: Yes: HTN Heme/Onc: Yes: Other (Breast CA s/p lumpectomy) Endocrine: Yes: Hypothyroidism (s/p thyroidectomy) - Alcohol/Substance Use Hx Alcohol Use: Yes (SOCIALLY) - Smoking History Smoking history: Never smoked Have you smoked in the past 12 months: No If you are a former smoker, when did you quit?: 30YRS AGO. 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 Home Medications - Allergies Allergies/Adverse Reactions: Allergies Allergy/AdvReac Type Severity Reaction Status Date / Time phenobarbital Allergy Intermediate Verified 08/05/17 11:15 ibuprofen AdvReac Severe Verified 08/05/17 11:15 - Home Medications Home Medications: Ambulatory Orders Amlodipine Besylate [Norvasc -] 5 mg PO DAILY 07/29/12 Chlorthalidone [Hygroton -] 25 mg PO ASDIR 07/29/12 Cholecalciferol (Vitamin D3) [Vitamin D3] 50,000 unit PO WEEKLY 10/07/16 Levothyroxine [Synthroid -] 100 mcg PO DAILY 10/07/16 Lisinopril [Prinivil] 20 mg PO DAILY 10/07/16 Metoprolol Succinate [Toprol Xl] 50 mg PO BID 10/07/16 hydrALAZINE HCL [Apresoline -] 25 mg PO BID 10/07/16 Ranitidine HCl [Zantac] 150 mg PO BID 04/29/18 Acetaminophen [Tylenol] 325 mg PO TID 10 Days #30 capsule 04/30/18 Family Disease History - Family Disease History Family History: Unremarkable (father lived to 96. Mother HTN) Review of Systems Findings/Remarks: ER HPI reviewed- as below: "73 yo F w/ PMH HTN, hypothyroid, thyroidectomy 2011, murmur?, recent papillary carcinoma of the L breast s/p left partial mastectomy w/ sentinel node biopsy on 04/30/18, p/w syncopal episode. This morning pt was on couch talking on phone eating breakfast and passed out. Pt does endorse seeing some spots beforehand but did not notice any prodromal sxs and denies any cp, sob, lightheadedness, n/v/d, fevers, chills, postictal confusion, head trauma, incontinence, seizure like activity, palpitations, urinary sxs, blood in stools. Pt notes she did take her lasix that morning before passing out,which she takes every other day but did not take her BP meds. She did feel warm after regaining consciousness" - Review of Systems Constitutional: reports: No Symptoms Eyes: reports: No Symptoms HENT: reports: No Symptoms Neck: reports: No Symptoms Cardiovascular: reports: No Symptoms Respiratory: reports: No Symptoms Gastrointestinal: reports: No Symptoms Genitourinary: reports: No Symptoms Breasts: reports: No Symptoms Reported Musculoskeletal: reports: No Symptoms Integumentary: reports: No Symptoms Neurological: reports: No Symptoms Endocrine: reports: No Symptoms Hematology/Lymphatic: reports: No Symptoms Psychiatric: reports: No Symptoms - Risk Factors Known Risk Factors: Yes: Hypertension Vital Signs: Vital Signs Temperature 98.7 F 05/03/18 06:48 Pulse Rate 71 05/03/18 06:48 Respiratory Rate 16 05/03/18 06:48 Blood Pressure 138/62 05/03/18 06:48 O2 Sat by Pulse Oximetry (%) 94 L 05/03/18 06:48 Constitutional: Yes: No Distress, Calm Eyes: Yes: Conjunctiva Clear, EOM Intact HENT: Yes: Atraumatic, Normocephalic Neck: Yes: Trachea Midline Respiratory: Yes: CTA Bilaterally Gastrointestinal: Yes: Soft, Abdomen, Obese Cardiovascular: Yes: Regular Rate and Rhythm JVD: No Carotid Bruit: No Heart Sounds: Yes: S1, S2 (RRR, no M/R/G) Edema: Yes Edema: LLE: 1+ (chronic-per patient), RLE: 1+ (chronic- per patient) Peripheral Pulses WNL: Yes Peripheral Pulses: 2+ Left Carotid (no bruit), 2+ Right Carotid (no bruit) Neurological: Yes: Alert, Oriented ...Motor Strength: WNL - Other Data Labs, Other Data: CBC, BMP 05/03/18 06:00 05/03/18 06:00 INR, PTT INR 1.06 (0.83-1.09) 05/01/18 15:00 Reviewed: NSR 76bpm, cannot r/o old IWMI; low voltage QRS may be due to body habitus Echo: Pending Imaging - Results Chest X-ray: Report Reviewed Ultrasound: Pending EKG: Image Reviewed Problem List - Problems (1) UTI (urinary tract infection) Code(s): N39.0 - URINARY TRACT INFECTION, SITE NOT SPECIFIED Qualifiers: Encounter type: initial encounter (2) Azotemia Code(s): R79.89 - OTHER SPECIFIED ABNORMAL FINDINGS OF BLOOD CHEMISTRY (3) Pre-syncope Code(s): R55 - SYNCOPE AND COLLAPSE (4) Breast cancer Code(s): C50.919 - MALIGNANT NEOPLASM OF UNSP SITE OF UNSPECIFIED FEMALE BREAST Qualifiers: Laterality: unspecified laterality (5) HTN (hypertension) Code(s): I10 - ESSENTIAL (PRIMARY) HYPERTENSION Qualifiers: Hypertension type: essential hypertension Qualified Code(s): I10 - Essential (primary) hypertension (6) Hypothyroidism Code(s): E03.9 - HYPOTHYROIDISM, UNSPECIFIED Qualifiers: Hypothyroidism type: unspecified Qualified Code(s): E03.9 - Hypothyroidism , unspecified Assessment/Plan IMP: UTI Pre-renal azotemia Early sepsis Presyncope in setting of above Breast CA REC: 1. Rx UTI and hydration as per PMD. 2. Echo for EF assessment. Suspect low voltage ECG likely due to body habitus. 3. F/u Carotid US report. 4. 2nd set cardiac enzymes: if negative, can d/c tele and downgrade to medical floor 5. Orthostatics 6. Consider modifying home BP regimen (decrease diuretic dosage). 7. Low clinical suspicion for PE (no significant hypoxia, no tachycardia, no chest pain). 8. DVT prophylaxis. Thank you.
[2018-05-03] MEDS: HEPARIN NA (PORCINE) 5,000 UNITS/ML 1ML VIAL SQ SCH ×2 (11:23→21:48)
[2018-05-03] MEDS: CHLORTHALIDONE 25 MG TABLET PO SCH (11:25)
[2018-05-03] MEDS: METOPROLOL TARTRATE 50 MG TABLET (FP) PO SCH ×2 (11:25→21:48)
[2018-05-03] MEDS: amLODIPine BESYLATE 5 MG TABLET (FP) PO SCH (11:26)
[2018-05-03] MEDS: CEFTRIAXONE 1 GM in DEXTROSE 5%-WATER - 50 ML IVPB SCH (11:26)
[2018-05-03] MEDS: LISINOPRIL 10 MG TABLET (FP) PO SCH (11:26)
[2018-05-03] MEDS: RANITIDINE HCL 150 MG TABLET (FP) PO SCH (11:26)
--- NOTE | 2018-05-03 14:17 | ECHO ---
Name: SHARON RIVERA Exam:Adult Echocardiogram Study Date: 05/03/2018 11:28 AM Age: 73 yrs Reason For Study: SYNCOPE Height: 63 in Weight: 248 lb BSA: 2.1 m2 MMode/2D Measurements & Calculations IVSd: 0.83 cm Ao root diam: 2.8 cm LVIDd: 5.7 cm LA dimension: 4.1 cm LVIDs: 4.1 cm ACS: 1.9 cm LVPWd: 0.94 cm IVSs: 1.1 cm LVPWs: 1.3 cm EDV(Teich): 160.6 ml ESV(Teich): 73.3 ml Doppler Measurements & Calculations MV E max medardo: 96.7 cm/sec Ao V2 max: 132.7 cm/sec MV A max medardo: 81.7 cm/sec Ao max P.0 mmHg MV E/A: 1.2 Ao V2 mean: 95.1 cm/sec Ao mean P.0 mmHg Ao V2 VTI: 30.5 cm MR max medardo: 431.9 cm/sec TR max medardo: 267.6 cm/sec MR max P.6 mmHg TR max P.7 mmHg Med Peak E' Medardo: 5.0 cm/sec Med E/e': 19.2 Lat Peak E' Medardo: 8.6 cm/sec Lat E/e': 11.3 Procedure A complete two-dimensional transthoracic echocardiogram was performed (2D, M-mode, Doppler and color flow Doppler). Left Ventricle The left ventricle is normal in size. Left ventricular systolic function is normal. Ejection Fraction = 60- 65%. Diastolic dysfunction, Grade II (pseudonormalization pattern). TDI reveals elevated filling pres sure (E/E' 20). No regional wall motion abnormalities noted. Right Ventricle The right ventricle is normal size. The right ventricular systolic function is normal. Atria The left atrium is mildly dilated. Right atrial size is normal. Mitral Valve The mitral valve is normal in structure and function. There is mild mitral regurgitation. Tricuspid Valve The tricuspid valve is normal in structure and function. There is mild tricuspid regurgitation. Pulmo nary artery systolic pressure is at least 35 mmHg assuming RA pressure of 3 mmHg. Aortic Valve The aortic valve is normal in structure and function. No aortic regurgitation is present. Pulmonic Valve The pulmonic valve is not well visualized. Great Vessels The aortic root is normal size. Pericardium/Pleura There is no pericardial effusion. Interpretation Summary The left ventricle is normal in size. Left ventricular systolic function is normal. No regional wall motion abnormalities noted. Ejection Fraction = 60-65%. Diastolic dysfunction, Grade II (pseudonormalization pattern). TDI reveals elevated filling pressure (E/E' 20) The right ventricular systolic function is normal. The left atrium is mildly dilated. Right atrial size is normal. There is mild mitral regurgitation. There is mild tricuspid regurgitation. Pulmonary artery systolic pressure is at least 35 mmHg assuming RA pressure of 3 mmHg. There is no pericardial effusion. Previous study is not available for comparison Matt Li MD 05/03/2018 02:16 PM
--- NOTE | 2018-05-03 15:27 | CONSULT ---
Consult - History of Present Illness History of Present Illness: Patient is s/p left partial mastectomy with left axillary , sentinel lymph node biopsy on 04/30/2018, She went home and had some syncopal attacks, the following day , and came to er. She is alert and oriented, today. - History Source History Provided By: Patient Limitations to Obtaining History: No Limitations - Past Medical History Cardio/Vascular: Yes: HTN Endocrine: Yes: Hypothyroidism (s/p thyroidectomy) - Alcohol/Substance Use Hx Alcohol Use: Yes (SOCIALLY) - Smoking History Smoking history: Never smoked Have you smoked in the past 12 months: No If you are a former smoker, when did you quit?: 30YRS AGO. 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 Home Medications - Allergies Allergies/Adverse Reactions: Allergies Allergy/AdvReac Type Severity Reaction Status Date / Time phenobarbital Allergy Intermediate Verified 08/05/17 11:15 ibuprofen AdvReac Severe Verified 08/05/17 11:15 - Home Medications Home Medications: Ambulatory Orders Amlodipine Besylate [Norvasc -] 5 mg PO DAILY 07/29/12 Chlorthalidone [Hygroton -] 25 mg PO ASDIR 07/29/12 Cholecalciferol (Vitamin D3) [Vitamin D3] 50,000 unit PO WEEKLY 10/07/16 Levothyroxine [Synthroid -] 100 mcg PO DAILY 10/07/16 Lisinopril [Prinivil] 20 mg PO DAILY 10/07/16 Metoprolol Succinate [Toprol Xl] 50 mg PO BID 10/07/16 hydrALAZINE HCL [Apresoline -] 25 mg PO BID 10/07/16 Ranitidine HCl [Zantac] 150 mg PO BID 04/29/18 Acetaminophen [Tylenol] 325 mg PO TID 10 Days #30 capsule 04/30/18 Physical Exam Vital Signs: Vital Signs Temperature 98.8 F 05/03/18 15:19 Pulse Rate 64 05/03/18 15:18 Respiratory Rate 18 05/03/18 15:18 Blood Pressure 163/72 05/03/18 15:18 O2 Sat by Pulse Oximetry (%) 94 L 05/03/18 06:48 Musculoskeletal: Yes: Other (Breast and left axilla: Dressing removed , no hematoma, wound is clean, without complications.) Labs: CBC, BMP 05/03/18 06:00 05/03/18 06:00 Problem List - Problems (1) Syncope Code(s): R55 - SYNCOPE AND COLLAPSE Qualifiers: Syncope type: unspecified Qualified Code(s): R55 - Syncope and collapse (2) UTI (urinary tract infection) Code(s): N39.0 - URINARY TRACT INFECTION, SITE NOT SPECIFIED Qualifiers: Encounter type: initial encounter (3) Carcinoma of left breast Code(s): C50.912 - MALIGNANT NEOPLASM OF UNSPECIFIED SITE OF LEFT FEMALE BREAST Qualifiers: Breast location: upper outer quadrant of breast Estrogen receptor status: positive
--- NOTE | 2018-05-03 16:49 | CON.ID ---
Consult - Past Medical History Cardio/Vascular: Yes: HTN Endocrine: Yes: Hypothyroidism (s/p thyroidectomy) - Alcohol/Substance Use Hx Alcohol Use: Yes (SOCIALLY) - Smoking History Smoking history: Never smoked Have you smoked in the past 12 months: No If you are a former smoker, when did you quit?: 30YRS AGO. 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 Home Medications - Allergies Allergies/Adverse Reactions: Allergies Allergy/AdvReac Type Severity Reaction Status Date / Time phenobarbital Allergy Intermediate Verified 08/05/17 11:15 ibuprofen AdvReac Severe Verified 08/05/17 11:15 - Home Medications Home Medications: Ambulatory Orders Amlodipine Besylate [Norvasc -] 5 mg PO DAILY 07/29/12 Chlorthalidone [Hygroton -] 25 mg PO ASDIR 07/29/12 Cholecalciferol (Vitamin D3) [Vitamin D3] 50,000 unit PO WEEKLY 10/07/16 Levothyroxine [Synthroid -] 100 mcg PO DAILY 10/07/16 Lisinopril [Prinivil] 20 mg PO DAILY 10/07/16 Metoprolol Succinate [Toprol Xl] 50 mg PO BID 10/07/16 hydrALAZINE HCL [Apresoline -] 25 mg PO BID 10/07/16 Ranitidine HCl [Zantac] 150 mg PO BID 04/29/18 Acetaminophen [Tylenol] 325 mg PO TID 10 Days #30 capsule 04/30/18 Physical Exam Vital Signs: Vital Signs Temperature 98.8 F 05/03/18 15:19 Pulse Rate 64 05/03/18 15:18 Respiratory Rate 18 05/03/18 15:18 Blood Pressure 163/72 05/03/18 15:18 O2 Sat by Pulse Oximetry (%) 94 L 05/03/18 06:48 Labs: CBC, BMP 05/03/18 06:00 05/03/18 06:00
--- NOTE | 2018-05-03 22:58 | PN ---
Progress Note, Physician History of Present Illness: No new complaints - Current Medication List Current Medications: Active Medications Acetaminophen (Tylenol -) 650 mg PO Q6H PRN PRN Reason: PAIN LEVEL 1 - 3 Stop: 05/04/18 18:28 Amlodipine Besylate (Norvasc -) 5 mg PO DAILY [facility] Last Admin: 05/03/18 11:26 Dose: 5 mg Chlorthalidone (Hygroton -) 25 mg PO DAILY [facility] Last Admin: 05/03/18 11:25 Dose: 25 mg Heparin Sodium (Porcine) (Heparin -) 5,000 unit SQ BID [facility] Last Admin: 05/03/18 21:48 Dose: 5,000 unit Ceftriaxone Sodium 1 gm/ (Dextrose) 50 mls @ 100 mls/hr IVPB DAILY [facility]; Protocol Last Admin: 05/03/18 11:26 Dose: 100 mls/hr Levothyroxine Sodium (Synthroid -) 100 mcg PO DAILY@0700 [facility] Last Admin: 05/03/18 07:00 Dose: 100 mcg Lisinopril (Prinivil) 10 mg PO DAILY [facility] Last Admin: 05/03/18 11:26 Dose: 10 mg Metoprolol Tartrate (Lopressor -) 50 mg PO BID [facility] Last Admin: 05/03/18 21:48 Dose: 50 mg Ranitidine HCl (Zantac -) 150 mg PO DAILY [facility] Last Admin: 05/03/18 11:26 Dose: 150 mg - Objective Vital Signs: Vital Signs Temperature 98.8 F 05/03/18 15:19 Pulse Rate 64 05/03/18 15:18 Respiratory Rate 18 05/03/18 15:18 Blood Pressure 163/72 05/03/18 15:18 O2 Sat by Pulse Oximetry (%) 94 L 05/03/18 06:48 Cardiovascular: Yes: WNL, Regular Rate and Rhythm Respiratory: Yes: WNL, Regular, CTA Bilaterally Gastrointestinal: Yes: WNL, Normal Bowel Sounds, Soft Labs: CBC, BMP 05/03/18 06:00 05/03/18 06:00 INR, PTT INR 1.06 (0.83-1.09) 05/01/18 15:00 Problem List - Problems (1) Syncope Assessment/Plan: Due to ?sepsis Cont IVF and IV antibxs Cultures remain negative WBC is normal Possible change to po antibxs Code(s): R55 - SYNCOPE AND COLLAPSE Qualifiers: Syncope type: unspecified Qualified Code(s): R55 - Syncope and collapse (2) HTN (hypertension) Assessment/Plan: BP stable Cont norvasc/lisinopril/lopressor/hygroton Code(s): I10 - ESSENTIAL (PRIMARY) HYPERTENSION Qualifiers: Hypertension type: essential hypertension Qualified Code(s): I10 - Essential (primary) hypertension (3) Hypothyroidism Assessment/Plan: Cont levothyroxine TSH level is in normal range Code(s): E03.9 - HYPOTHYROIDISM, UNSPECIFIED Qualifiers: Hypothyroidism type: unspecified Qualified Code(s): E03.9 - Hypothyroidism , unspecified (4) Breast cancer Code(s): C50.919 - MALIGNANT NEOPLASM OF UNSP SITE OF UNSPECIFIED FEMALE BREAST Qualifiers: Laterality: unspecified laterality
[2018-05-03 23:02] VITALS: BMI 44.1
[2018-05-04] MEDS: LEVOTHYROXINE NA 100 MCG TABLET (FP) PO SCH (06:05)
--- NOTE | 2018-05-04 08:47 | PN ---
Progress Note, Physician Chief Complaint: Echo normal LV fxn Carotid US b/l plaque without sig stenosis. History of Present Illness: No CP or SOB - Current Medication List Current Medications: Active Medications Acetaminophen (Tylenol -) 650 mg PO Q6H PRN PRN Reason: PAIN LEVEL 1 - 3 Stop: 05/04/18 18:28 Amlodipine Besylate (Norvasc -) 5 mg PO DAILY [facility] Last Admin: 05/03/18 11:26 Dose: 5 mg Chlorthalidone (Hygroton -) 25 mg PO DAILY [facility] Last Admin: 05/03/18 11:25 Dose: 25 mg Heparin Sodium (Porcine) (Heparin -) 5,000 unit SQ BID [facility] Last Admin: 05/03/18 21:48 Dose: 5,000 unit Ceftriaxone Sodium 1 gm/ (Dextrose) 50 mls @ 100 mls/hr IVPB DAILY [facility]; Protocol Last Admin: 05/03/18 11:26 Dose: 100 mls/hr Levothyroxine Sodium (Synthroid -) 100 mcg PO DAILY@0700 [facility] Last Admin: 05/04/18 06:05 Dose: 100 mcg Lisinopril (Prinivil) 10 mg PO DAILY [facility] Last Admin: 05/03/18 11:26 Dose: 10 mg Metoprolol Tartrate (Lopressor -) 50 mg PO BID [facility] Last Admin: 05/03/18 21:48 Dose: 50 mg Ranitidine HCl (Zantac -) 150 mg PO DAILY [facility] Last Admin: 05/03/18 11:26 Dose: 150 mg - Objective Vital Signs: Vital Signs Temperature 98.4 F 05/04/18 07:47 Pulse Rate 65 05/04/18 07:47 Respiratory Rate 18 05/04/18 07:47 Blood Pressure 150/70 05/04/18 07:47 O2 Sat by Pulse Oximetry (%) 97 05/03/18 21:00 Constitutional: Yes: No Distress, Calm Cardiovascular: Yes: Regular Rate and Rhythm Respiratory: Yes: CTA Bilaterally Gastrointestinal: Yes: Soft Edema: No Neurological: Yes: Alert, Oriented Labs: CBC, BMP 05/03/18 06:00 05/03/18 06:00 INR, PTT INR 1.06 (0.83-1.09) 05/01/18 15:00 Problem List - Problems (1) UTI (urinary tract infection) Code(s): N39.0 - URINARY TRACT INFECTION, SITE NOT SPECIFIED Qualifiers: Encounter type: initial encounter (2) Azotemia Code(s): R79.89 - OTHER SPECIFIED ABNORMAL FINDINGS OF BLOOD CHEMISTRY (3) Pre-syncope Code(s): R55 - SYNCOPE AND COLLAPSE (4) Breast cancer Code(s): C50.919 - MALIGNANT NEOPLASM OF UNSP SITE OF UNSPECIFIED FEMALE BREAST Qualifiers: Laterality: unspecified laterality (5) HTN (hypertension) Code(s): I10 - ESSENTIAL (PRIMARY) HYPERTENSION Qualifiers: Hypertension type: essential hypertension Qualified Code(s): I10 - Essential (primary) hypertension (6) Hypothyroidism Code(s): E03.9 - HYPOTHYROIDISM, UNSPECIFIED Qualifiers: Hypothyroidism type: unspecified Qualified Code(s): E03.9 - Hypothyroidism , unspecified Assessment/Plan IMP: UTI Pre-renal azotemia Early sepsis Presyncope in setting of above Breast CA REC: 1. Rx UTI and hydration as per PMD. 2. Echo showed nl LVEF, no pericardial effusion and no sig. PHTN. Serial cardiac enzymes negative. 3. Carotid US showed mild b/l disease with no significant obstruction. No further inpt. cardiac w/u planned. Advised outpt f/u in 1-2 weeks.
[2018-05-04] MEDS ORDERED: DEXTROSE 5%-WATER - 50 ML IVPB ONE (09:15)
[2018-05-04] MEDS ORDERED: cefTRIAXone SODIUM 1 GM VIAL ONE (09:15)
[2018-05-04] MEDS: CEFTRIAXONE 1 GM in DEXTROSE 5%-WATER - 50 ML IVPB SCH (09:59)
[2018-05-04] MEDS: METOPROLOL TARTRATE 50 MG TABLET (FP) PO SCH ×2 (09:59→21:32)
[2018-05-04] MEDS: CHLORTHALIDONE 25 MG TABLET PO SCH (09:59)
[2018-05-04] MEDS: RANITIDINE HCL 150 MG TABLET (FP) PO SCH (09:59)
[2018-05-04] MEDS: amLODIPine BESYLATE 5 MG TABLET (FP) PO SCH (10:00)
[2018-05-04] MEDS: HEPARIN NA (PORCINE) 5,000 UNITS/ML 1ML VIAL SQ SCH ×2 (10:00→21:32)
[2018-05-04] MEDS: LISINOPRIL 10 MG TABLET (FP) PO SCH (10:00)
--- NOTE | 2018-05-04 10:10 | PN ---
Progress Note, Physician History of Present Illness: Patient is afebrile. Surgical site , clean , no sign of infection. - Current Medication List Current Medications: Active Medications Acetaminophen (Tylenol -) 650 mg PO Q6H PRN PRN Reason: PAIN LEVEL 1 - 3 Stop: 05/04/18 18:28 Amlodipine Besylate (Norvasc -) 5 mg PO DAILY [facility] Last Admin: 05/04/18 10:00 Dose: 5 mg Chlorthalidone (Hygroton -) 25 mg PO DAILY [facility] Last Admin: 05/04/18 09:59 Dose: 25 mg Heparin Sodium (Porcine) (Heparin -) 5,000 unit SQ BID [facility] Last Admin: 05/04/18 10:00 Dose: 5,000 unit Ceftriaxone Sodium 1 gm/ (Dextrose) 50 mls @ 100 mls/hr IVPB DAILY [facility]; Protocol Last Admin: 05/04/18 09:59 Dose: 100 mls/hr Levothyroxine Sodium (Synthroid -) 100 mcg PO DAILY@0700 [facility] Last Admin: 05/04/18 06:05 Dose: 100 mcg Lisinopril (Prinivil) 10 mg PO DAILY [facility] Last Admin: 05/04/18 10:00 Dose: 10 mg Metoprolol Tartrate (Lopressor -) 50 mg PO BID [facility] Last Admin: 05/04/18 09:59 Dose: 50 mg Ranitidine HCl (Zantac -) 150 mg PO DAILY [facility] Last Admin: 05/04/18 09:59 Dose: 150 mg - Objective Vital Signs: Vital Signs Temperature 98.2 F 05/04/18 10:05 Pulse Rate 67 05/04/18 10:05 Respiratory Rate 20 05/04/18 10:05 Blood Pressure 176/78 H 05/04/18 10:05 O2 Sat by Pulse Oximetry (%) 97 05/03/18 21:00 Labs: CBC, BMP 05/03/18 06:00 05/03/18 06:00 INR, PTT INR 1.06 (0.83-1.09) 05/01/18 15:00 Problem List - Problems (1) Syncope Code(s): R55 - SYNCOPE AND COLLAPSE Qualifiers: Syncope type: unspecified Qualified Code(s): R55 - Syncope and collapse (2) UTI (urinary tract infection) Code(s): N39.0 - URINARY TRACT INFECTION, SITE NOT SPECIFIED Qualifiers: Encounter type: initial encounter (3) Carcinoma of left breast Code(s): C50.912 - MALIGNANT NEOPLASM OF UNSPECIFIED SITE OF LEFT FEMALE BREAST Qualifiers: Breast location: upper outer quadrant of breast Estrogen receptor status: positive Assessment/Plan Urine culture and blood culture is negative for organism. WBC and hematocrit is normal. Cardiac status : Normal.
--- NOTE | 2018-05-04 14:26 | PN ---
Progress Note, Physician - Current Medication List Current Medications: Active Medications Acetaminophen (Tylenol -) 650 mg PO Q6H PRN PRN Reason: PAIN LEVEL 1 - 3 Stop: 05/04/18 18:28 Amlodipine Besylate (Norvasc -) 5 mg PO DAILY [facility] Last Admin: 05/04/18 10:00 Dose: 5 mg Chlorthalidone (Hygroton -) 25 mg PO DAILY [facility] Last Admin: 05/04/18 09:59 Dose: 25 mg Heparin Sodium (Porcine) (Heparin -) 5,000 unit SQ BID [facility] Last Admin: 05/04/18 10:00 Dose: 5,000 unit Ceftriaxone Sodium 1 gm/ (Dextrose) 50 mls @ 100 mls/hr IVPB DAILY [facility]; Protocol Last Admin: 05/04/18 09:59 Dose: 100 mls/hr Levothyroxine Sodium (Synthroid -) 100 mcg PO DAILY@0700 [facility] Last Admin: 05/04/18 06:05 Dose: 100 mcg Lisinopril (Prinivil) 10 mg PO DAILY [facility] Last Admin: 05/04/18 10:00 Dose: 10 mg Metoprolol Tartrate (Lopressor -) 50 mg PO BID [facility] Last Admin: 05/04/18 09:59 Dose: 50 mg Ranitidine HCl (Zantac -) 150 mg PO DAILY [facility] Last Admin: 05/04/18 09:59 Dose: 150 mg - Objective Vital Signs: Vital Signs Temperature 98.2 F 05/04/18 10:05 Pulse Rate 67 05/04/18 10:05 Respiratory Rate 20 05/04/18 10:05 Blood Pressure 176/78 H 05/04/18 10:05 O2 Sat by Pulse Oximetry (%) 97 05/04/18 09:00 Labs: CBC, BMP 05/03/18 06:00 05/03/18 06:00 INR, PTT INR 1.06 (0.83-1.09) 05/01/18 15:00
[2018-05-04] MEDS: hydrALAZINE HCL 25 MG TABLET (FP) PO SCH ×2 (18:24→21:32)
[2018-05-05] MEDS: LEVOTHYROXINE NA 100 MCG TABLET (FP) PO SCH (06:34)
[2018-05-05 07:48] LABS: BASO % 0.7 % (0-2.0); EOS % 1.2 % (0-4.5); HEMATOCRIT 37.8 % (32.4-45.2); HEMOGLOBIN 12.6 GM/dL (10.7-15.3); LYMPH % 15.9 % (8-40); MCH 31.7 pg (25.7-33.7); MCHC 33.3 g/dl (32.0-36.0); MEAN CELL VOLUME 95.4 fl (80-96); MEAN PLT VOLUME 9.6 fl (7.5-11.1); MONO % 11.5 % (3.8-10.2); NEUT % 70.7 % (42.8-82.8); PLATELET COUNT 170 K/MM3 (134-434); RBC 3.96 M/mm3 (3.60-5.2); RDW 12.2 % (11.6-15.6); WHITE BLOOD COUNT 7.2 K/mm3 (4.0-10.0)
[2018-05-05 07:54] LABS: ANION GAP 6 MMOL/L (8-16); BLOOD UREA NITROGEN 11 mg/dL (7-18); CHLORIDE 95 mmol/L (98-107); CO2 31 mmol/L (21-32); CREATININE 0.8 mg/dL (0.55-1.3); GLUCOSE,RANDOM 97 mg/dL (74-106); POTASSIUM 3.9 mmol/L (3.5-5.1); SODIUM 131 mmol/L (136-145)
[2018-05-05] MEDS: METOPROLOL TARTRATE 50 MG TABLET (FP) PO SCH (09:47)
[2018-05-05] MEDS: CHLORTHALIDONE 25 MG TABLET PO SCH (09:47)
[2018-05-05] MEDS: HEPARIN NA (PORCINE) 5,000 UNITS/ML 1ML VIAL SQ SCH (09:48)
[2018-05-05] MEDS: RANITIDINE HCL 150 MG TABLET (FP) PO SCH (09:48)
[2018-05-05] MEDS: LISINOPRIL 10 MG TABLET (FP) PO SCH (09:48)
[2018-05-05] MEDS: hydrALAZINE HCL 25 MG TABLET (FP) PO SCH (09:48)
[2018-05-05] MEDS: amLODIPine BESYLATE 5 MG TABLET (FP) PO SCH (09:48)
--- NOTE | 2018-05-05 10:55 | PN ---
Progress Note (short form) - Note Progress Note: patient seen and examined in room chart reviewed / meds reviewed reports 2 episodes of syncope post d/c of BX / prior to admission feeling well at this point Vital Signs Period Temp Pulse Resp BP Sys/Burroughs Pulse Ox Last 24 Hr 98.1 F-98.6 F 64-71 18-20 155-171/64-81 96 neck supple heart S1/S2 lungs clear bilar left breast - surgical site / well approximated hematoma resolving / no mass / collection / or drainage abd obese ext no edema Microbiology 05/01/18 17:30 Blood - Peripheral Venous Blood Culture - Preliminary NO GROWTH OBTAINED AFTER 72 HOURS, INCUBATION TO CONTINUE FOR 2 DAYS. 05/01/18 17:10 Blood - Peripheral Venous Blood Culture - Preliminary NO GROWTH OBTAINED AFTER 72 HOURS, INCUBATION TO CONTINUE FOR 2 DAYS. 05/01/18 17:30 Urine - Urine Clean Catch Urine Culture - Final NO GROWTH OBTAINED Echo showed nl LVEF, no pericardial effusion No sig. PHTN. Serial cardiac enzymes negative. Carotid US showed mild b/l disease with no significant obstruction. Patient is s/p left partial mastectomy with left axillary , sentinel lymph node biopsy on 04/30/2018, She went home and had syncopal attacks, the following day , and came to er. During hosp stay seen by Cardio / ID / and surgical follow up. On admission cardiac labs negative and patient down- graded to med barraza per Cardio-- Today she reports feeling well, alert, oriented , and able to provide hx. assment / plan presumptive tx for UTI Pre-renal azotemia HTN -- fluctuation ?? obesity Early sepsis Presyncope / syncope in setting of above Breast CA, s/p bx 04/30/18 Patient hydrated -- renal function improved ABX tx -- c/s back negative adjust meds to improve bp control Cardio follow up in 2 weeks surgical follow up post d/c possible d/c 24-48 hrs .
--- NOTE | 2018-05-05 11:13 | DS ---
Physical Examination Vital Signs: Vital Signs Temperature 98.1 F 05/05/18 06:10 Pulse Rate 64 05/05/18 06:10 Respiratory Rate 18 05/05/18 06:10 Blood Pressure 171/81 H 05/05/18 06:10 O2 Sat by Pulse Oximetry (%) 96 05/04/18 21:00 Findings/Remarks: Patient is s/p left partial mastectomy with left axillary , sentinel lymph node biopsy on 04/30/2018, She went home and had syncopal attacks, the following day , and came to er. During hosp stay seen by Cardio / ID / and surgical follow up. On admission cardiac labs negative and patient down- graded to med barraza per Cardio-- Today she reports feeling well, alert, oriented , and able to provide hx. assment / plan presumptive tx for UTI Pre-renal azotemia HTN -- fluctuation ?? obesity Early sepsis Presyncope / syncope in setting of above Breast CA, s/p bx 04/30/18 Patient hydrated -- renal function improved ABX tx -- c/s back negative adjust meds to improve bp control Cardio follow up in 2 weeks surgical follow up post d/c possible d/c 24-48 hrs . Microbiology 05/01/18 17:30 Blood - Peripheral Venous Blood Culture - Preliminary NO GROWTH OBTAINED AFTER 72 HOURS, INCUBATION TO CONTINUE FOR 2 DAYS. 05/01/18 17:10 Blood - Peripheral Venous Blood Culture - Preliminary NO GROWTH OBTAINED AFTER 72 HOURS, INCUBATION TO CONTINUE FOR 2 DAYS. 05/01/18 17:30 Urine - Urine Clean Catch Urine Culture - Final NO GROWTH OBTAINED Echo showed nl LVEF, no pericardial effusion No sig. PHTN. Serial cardiac enzymes negative. Carotid US showed mild b/l disease with no significant obstruction. Constitutional: Yes: Well Nourished, No Distress, Obese Eyes: Yes: Conjunctiva Clear, EOM Intact HENT: Yes: Atraumatic, Normocephalic Neck: Yes: Supple, Trachea Midline Cardiovascular: Yes: Regular Rate and Rhythm Respiratory: Yes: Regular, CTA Bilaterally Gastrointestinal: Yes: Normal Bowel Sounds, Soft, Abdomen, Obese ...Rectal Exam: Yes: Deferred Breast(s): Yes: WNL Musculoskeletal: Yes: WNL Extremities: Yes: WNL Edema: No Peripheral Pulses: Left Radial: 2+, Right Radial: 2+, Left Doralis Pedis: 2+ Integumentary: Yes: WNL Wound/Incision: Yes: Clean/Dry, Well Approximated Neurological: Yes: WNL ...Motor Strength: WNL Psychiatric: Yes: Alert, Oriented Labs: CBC, BMP 05/05/18 06:45 05/05/18 06:45 Discharge Summary Reason For Visit: SYNCOPE, LOW VOLTAGE EKG Current Active Problems Azotemia (Acute) Breast cancer (Acute) Carcinoma of left breast (Acute) HTN (hypertension) (Acute) Hypothyroidism (Acute) Pre-syncope (Acute) Syncope (Acute) UTI (urinary tract infection) (Acute) Condition: Improved - Instructions Referrals: Shannan Haro MD [Primary Care Provider] - Hudson Cerda MD [Staff Physician] - Lary Hurtado MD [Staff Physician] - Disposition: HOME - Home Medications Comprehensive Discharge Medication List: Ambulatory Orders Amlodipine Besylate [Norvasc -] 5 mg PO DAILY 07/29/12 Chlorthalidone [Hygroton -] 25 mg PO ASDIR 07/29/12 Cholecalciferol (Vitamin D3) [Vitamin D3] 50,000 unit PO WEEKLY 10/07/16 Levothyroxine [Synthroid -] 100 mcg PO DAILY 10/07/16 Lisinopril [Prinivil] 20 mg PO DAILY 10/07/16 Metoprolol Succinate [Toprol Xl] 50 mg PO BID 10/07/16 hydrALAZINE HCL [Apresoline -] 25 mg PO BID 10/07/16 Ranitidine HCl [Zantac] 150 mg PO BID 04/29/18 Acetaminophen [Tylenol] 325 mg PO TID 10 Days #30 capsule 04/30/18 Imdur 30 mg ER q am
[2018-05-05] MEDS ORDERED: ISOSORBIDE MONONITRATE 30 MG TAB.SR.24H (FP) PO SCH (11:30)
--- NOTE | 2018-05-05 12:56 | PN ---
Progress Note, Physician History of Present Illness: stable no new issues - Current Medication List Current Medications: Active Medications Amlodipine Besylate (Norvasc -) 5 mg PO DAILY [facility] Last Admin: 05/05/18 09:48 Dose: 5 mg Chlorthalidone (Hygroton -) 25 mg PO DAILY [facility] Last Admin: 05/05/18 09:47 Dose: 25 mg Heparin Sodium (Porcine) (Heparin -) 5,000 unit SQ BID [facility] Last Admin: 05/05/18 09:48 Dose: 5,000 unit Hydralazine HCl (Apresoline -) 25 mg PO BID [facility] Last Admin: 05/05/18 09:48 Dose: 25 mg Isosorbide Mononitrate (Imdur -) 30 mg PO DAILY [facility] Levothyroxine Sodium (Synthroid -) 100 mcg PO DAILY@0700 [facility] Last Admin: 05/05/18 06:34 Dose: 100 mcg Lisinopril (Prinivil) 10 mg PO DAILY [facility] Last Admin: 05/05/18 09:48 Dose: 10 mg Metoprolol Tartrate (Lopressor -) 50 mg PO BID [facility] Last Admin: 05/05/18 09:47 Dose: 50 mg Ranitidine HCl (Zantac -) 150 mg PO DAILY [facility] Last Admin: 05/05/18 09:48 Dose: 150 mg - Objective Vital Signs: Vital Signs Temperature 98.1 F 05/05/18 06:10 Pulse Rate 64 05/05/18 06:10 Respiratory Rate 18 05/05/18 06:10 Blood Pressure 171/81 H 05/05/18 06:10 O2 Sat by Pulse Oximetry (%) 96 05/04/18 21:00 Constitutional: Yes: No Distress, Calm Cardiovascular: Yes: Regular Rate and Rhythm Respiratory: Yes: Regular, CTA Bilaterally Gastrointestinal: Yes: Normal Bowel Sounds, Soft Musculoskeletal: Yes: WNL Extremities: Yes: WNL Neurological: Yes: Alert, Oriented Labs: CBC, BMP 05/05/18 06:45 05/05/18 06:45 INR, PTT INR 1.06 (0.83-1.09) 05/01/18 15:00 Assessment/Plan Problem List - Problems (1) Syncope Code(s): R55 - SYNCOPE AND COLLAPSE Qualifiers: Syncope type: unspecified Qualified Code(s): R55 - Syncope and collapse (2) HTN (hypertension) Code(s): I10 - ESSENTIAL (PRIMARY) HYPERTENSION Qualifiers: Hypertension type: essential hypertension Qualified Code(s): I10 - Essential (primary) hypertension (3) Hypothyroidism Code(s): E03.9 - HYPOTHYROIDISM, UNSPECIFIED Qualifiers: Hypothyroidism type: unspecified Qualified Code(s): E03.9 - Hypothyroidism , unspecified (4) Breast cancer Code(s): C50.919 - MALIGNANT NEOPLASM OF UNSP SITE OF UNSPECIFIED FEMALE BREAST Qualifiers: Laterality: unspecified laterality plan continue monitoring without abx patient doing well monitor bp rest as per the team
[2018-05-05 14:15] VITALS: TEMP 97.2
[2018-05-05 15:58] VITALS: BP 145/73; PULSE 67
== END 2018-05-05 15:29 | disposition home or self-care (01) | DRG 690 ==
LOC: JER 14:46 → JERBED 16:08 → J7W 05-03 19:00
PROVIDERS: ADMIT Family Medicine; ATTEND Family Medicine
DX: N39.0 Urinary tract infection, site not specified (principal); Z68.41 Body mass index [BMI] 40.0-44.9, adult; R55 Syncope and collapse; I10 Essential (primary) hypertension; E89.0 Postprocedural hypothyroidism; C50.912 Malignant neoplasm of unspecified site of left female breast; E78.00 Pure hypercholesterolemia, unspecified; Z87.891 Personal history of nicotine dependence; E66.9 Obesity, unspecified; Z90.12 Acquired absence of left breast and nipple; Z17.0 Estrogen receptor positive status [ER+]; R79.89 Other specified abnormal findings of blood chemistry
CPT/HCPCS: 36415; 71045-TC-FY; 80048; 80053; 81003; 81015; 82550; 82553; 83605; 83735; 84100; 84443; 84484; 85025; 85610; 87040; 87086; 93005; 93010; 93306-TC; 93880-TC; 99285-25; J1644; J7030

== ENCOUNTER 2018-08-25 07:16 | Emergency (ER) | payer OTHER ==
--- NOTE | 2018-08-25 07:41 | PDOC ---
History of Present Illness - General History Source: Patient Exam Limitations: No Limitations - History of Present Illness Initial Comments: 08/25/18 08:29 The patient is a 73 year old female, with a significant past medical history of HTN, hypothyroid, thyroidectomy 2012, recent papillary carcinoma of the L breast s/p left partial mastectomy w/ sentinel node biopsy on 04/30/18 and undergoing radiation, who presents to the emergency department with left sided tongue swelling which started last night. She states she has experienced the left sided tongue swelling twice before for which she believes to have been given epinephrine and antibiotics. She denies any trauma to her tongue. She states the onset of swelling was gradual, however, denies having difficulty breathing or swallowing. She states she took benadryl around 6:45AM. She denies any new foods or medications. She denies any rashes. The patient denies chest pain, shortness of breath, headache and dizziness. The patient denies fever, chills, nausea, vomit, diarrhea and constipation. The patient denies dysuria, frequency, urgency and hematuria. Allergies: phenobarbitol, ibuprofen PCP - Dr. Shannan Haro <Frieda Winter - Last Filed: 08/25/18 08:29> <Bobby Donald - Last Filed: 08/25/18 08:42> - General Chief Complaint: Allergic Reaction Stated Complaint: TONGUE SWELLING Time Seen by Provider: 08/25/18 07:41 Past History <Frieda Winter - Last Filed: 08/25/18 08:29> - Past Medical History Anemia: No Asthma: No Cancer: Yes (breast cancer) Cardiac Disorders: No CVA: No COPD: No CHF: No DVT: No Dementia: No Diabetes: No GI Disorders: Yes (COLON POLYPS) Disorders: No HTN: Yes Hypercholesterolemia: Yes Liver Disease: No Seizures: No Thyroid Disease: Yes - Surgical History Abdominal Surgery: No Appendectomy: No Cardiac Surgery: No Cholecystectomy: No Lung Surgery: No Neurologic Surgery: No Orthopedic Surgery: No - Suicide/Smoking/Psychosocial Hx Smoking History: Never smoked Have you smoked in the past 12 months: No If you are a former smoker, when did you quit?: 30YRS AGO. Hx Alcohol Use: No Drug/Substance Use Hx: No Substance Use Type: None Hx Substance Use Treatment: No <Bobby Donald - Last Filed: 08/25/18 08:42> - Past Medical History Allergies/Adverse Reactions: Allergies Allergy/AdvReac Type Severity Reaction Status Date / Time phenobarbital Allergy Intermediate Verified 08/25/18 07:32 ibuprofen AdvReac Severe Verified 08/25/18 07:32 Home Medications: Ambulatory Orders Cholecalciferol (Vitamin D3) [Vitamin D3] 50,000 unit PO WEEKLY 10/07/16 Lisinopril [Prinivil] 20 mg PO DAILY 10/07/16 Ranitidine HCl [Zantac] 150 mg PO BID 04/29/18 Acetaminophen [Tylenol .Regular Strength -] 650 mg PO Q6H PRN tablet 05/05/18 Amlodipine Besylate [Norvasc -] 5 mg PO DAILY tablet 05/05/18 Chlorthalidone [Hygroton -] 25 mg PO DAILY tablet 05/05/18 Isosorbide Mononitrate [Imdur -] 30 mg PO DAILY 30 Days #30 tab.sr.24h 05/05/18 Levothyroxine [Synthroid -] 100 mcg PO DAILY@0700 tablet 05/05/18 Metoprolol Tartrate [Lopressor -] 50 mg PO BID tablet 05/05/18 hydrALAZINE HCL [Apresoline -] 25 mg PO BID tablet 05/05/18 Review of Systems - Review of Systems Able to Perform ROS?: Yes Comments:: 08/25/18 08:30 CONSTITUTIONAL: No fever, no chills, no fatigue EYES: No visual changes ENT:(+) L tongue swelling. No ear pain, no sore throat CARDIOVASCULAR: No chest pain, no palpitations RESPIRATORY: No cough, no SOB GI: No abdominal pain, no nausea, no vomiting, no constipation, no diarrhea GENITOURINARY: No dysuria, no frequency, no hematuria MUSKULOSKELETAL: No backpain, no joint pain, no myalgias SKIN: No rash NEURO: No headache <Frieda Winter - Last Filed: 08/25/18 08:29> *Physical Exam - Vital Signs Last Vital Signs Temp Pulse Resp BP Pulse Ox 97.8 F 77 18 170/73 97 08/25/18 07:33 08/25/18 07:33 08/25/18 07:33 08/25/18 07:33 08/25/18 07:33 - Physical Exam Comments: 08/25/18 08:30 CONSTITUTIONAL: Well-appearing; well-nourished; in no apparent distress HEAD: Normocephalic; atraumatic EYES: PERRL; EOM intact ENMT: (+) asymmetric left tongue edema. Pt able to tolerate own secretions, no visible trauma. No stridor. External appears normal; normal oropharynx NECK: Supple; non-tender; no cervical lymphadenopathy CARD: Normal S1, S2; no murmurs, rubs, or gallops RESP: Normal chest excursion with respiration; breath sounds clear and equal bilaterally; no wheezes, rhonchi, or rales ABD: Soft, non-distended; non-tender; no palpable organomegaly, no palpable hernias EXT: Normal ROM in all four extremities; non-tender to palpation; distal pulses intact SKIN: Warm, dry, no rash NEURO: No focal neurological deficiencies. <Frieda Winter - Last Filed: 08/25/18 08:29> - Vital Signs Last Vital Signs Temp Pulse Resp BP Pulse Ox 97.8 F 77 18 170/73 97 08/25/18 07:33 08/25/18 07:33 08/25/18 07:33 08/25/18 07:33 08/25/18 07:33 <Bobby Donald - Last Filed: 08/25/18 08:42> Moderate Sedation - Procedure Monitoring Vital Signs: Procedure Monitoring Vital Signs Temperature 97.8 F 08/25/18 07:33 Pulse Rate 77 08/25/18 07:33 Respiratory Rate 18 08/25/18 07:33 Blood Pressure 170/73 08/25/18 07:33 O2 Sat by Pulse Oximetry (%) 97 08/25/18 07:33 <Frieda Winter - Last Filed: 08/25/18 08:29> - Procedure Monitoring Vital Signs: Procedure Monitoring Vital Signs Temperature 97.8 F 08/25/18 07:33 Pulse Rate 77 08/25/18 07:33 Respiratory Rate 18 08/25/18 07:33 Blood Pressure 170/73 08/25/18 07:33 O2 Sat by Pulse Oximetry (%) 97 08/25/18 07:33 <Bobby Donald - Last Filed: 08/25/18 08:42> ED Treatment Course - Medications Given in the ED: ED Medications Discontinued Medications Generic Name Dose Route Start Last Admin Trade Name Jonah PRN Reason Stop Dose Admin Dexamethasone Sodium Phosphate 10 mg 08/25/18 07:56 08/25/18 08:00 Decadron Injection - IM 08/25/18 07:57 10 mg ONCE ONE Administration Ranitidine HCl 150 mg 08/25/18 07:56 08/25/18 08:00 Zantac - PO 08/25/18 07:57 150 mg ONCE ONE Administration <Frieda Winter - Last Filed: 08/25/18 08:29> Medical Decision Making - Medical Decision Making 08/25/18 08:41 Patient 73-year-old female with history of hypertension, breast CA currently receiving radiation therapy, presents with asymmetrical atraumatic swelling of her tongue. I suspect angioedema related to BRIGITTE inhibitor therapy. Patient's received Decadron, Zantac and had taken Benadryl prior to arrival. Will discharge to receive radiation therapy. Advice to return immediately for worsening symptoms. Patient to follow-up with PMD later in the afternoon for adjustment of blood pressure medication regimen. <Bobby Donald - Last Filed: 08/25/18 08:42> *DC/Admit/Observation/Transfer - Attestations Scribe Attestion: 08/25/18 08:31 Documentation prepared by Frieda Winter, acting as director global medical affairs for Bobby Donald MD <Frieda Winter - Last Filed: 08/25/18 08:29> <Bobby Donald - Last Filed: 08/25/18 08:42> Diagnosis at time of Disposition: Angioedema Qualifiers: Encounter type: initial encounter Qualified Code(s): T78.3XXA - Angioneurotic edema, initial encounter - Discharge Dispostion Disposition: HOME Condition at time of disposition: Stable - Referrals Referrals: Shannan Haro MD [Primary Care Provider] - - Patient Instructions Printed Discharge Instructions: DI for Adverse Drug Reaction -- Allergic, DI for Angioedema - Post Discharge Activity
[2018-08-25 07:42] VITALS: BP 170/73; PULSE 77; TEMP 97.8; BMI 43.4
[2018-08-25] MEDS ORDERED: RANITIDINE HCL 150 MG TABLET (FP) ONE (07:55)
[2018-08-25] MEDS ORDERED: DEXAMETHASONE SOD PHOSPHATE 10 MG/1 ML VIAL ONE (07:55)
[2018-08-25] MEDS ORDERED: RANITIDINE HCL 150 MG TABLET (FP) PO ONE (07:56)
[2018-08-25] MEDS ORDERED: DEXAMETHASONE SOD PHOSPHATE 10 MG/1 ML VIAL IM ONE (07:56)
== END 2018-08-25 09:12 | disposition home or self-care (01) ==
LOC: JER 07:16
PROC: 3E0233Z Introduction of Anti-inflammatory into Muscle, Percutaneous Approach (ICD-10-PCS; principal; 2018-08-25)
DX: T78.3XXA Angioneurotic edema, initial encounter (principal); T78.49XA Other allergy, initial encounter; X58.XXXA Exposure to other specified factors, initial encounter; I10 Essential (primary) hypertension; E03.9 Hypothyroidism, unspecified; E78.00 Pure hypercholesterolemia, unspecified; C50.912 Malignant neoplasm of unspecified site of left female breast; Z90.12 Acquired absence of left breast and nipple; E89.0 Postprocedural hypothyroidism; Z86.010 Personal history of colon polyps
CPT/HCPCS: 96372; 99282-25; J1100